=== PATIENT | female | born 1965 | race Caucasian/White ===

== ENCOUNTER 2019-10-05 10:15 | Outpatient (CLI) | payer MEDICAID ==
[~2019-10-05] VITALS: Ht 162 cm; Wt 70.4 kg
[2019-10-05] MEDS ORDERED: PRED5TAB PO (10:41)
[2019-10-05] MEDS ORDERED: OMEP20CA13 PO (10:41)
[2019-10-05] MEDS ORDERED: DESV50TA PO (10:41)
[2019-10-05] MEDS ORDERED: TRAM50TA2 PO (10:41)
[2019-10-05] MEDS ORDERED: TOPI200T8 PO (10:41)
[2019-10-05] MEDS ORDERED: BACL20TA PO (10:41)
[2019-10-05] MEDS ORDERED: TRAZ-190 PO (10:41)
[2019-10-05] MEDS ORDERED: DICY10CA12 PO (10:41)
[2019-10-05] MEDS ORDERED: CARI4.5C PO (10:41)
[2019-10-05] MEDS ORDERED: QUET50TA PO (10:41)
[2019-10-05] MEDS ORDERED: VARE0.5T PO (10:41)
[2019-10-05] MEDS ORDERED: RIZA10TA23 PO (10:41)
[2019-10-05] MEDS ORDERED: EREN70AU SQ (10:41)
[2019-10-05] MEDS ORDERED: INDO25CA15 PO (10:41)
== END 2019-10-05 10:56 ==
LOC: PREOP 10:15
PROVIDERS: ATTEND Orthopaedic Surgery
DX: Z01.818 Encounter for other preprocedural examination (principal)

== ENCOUNTER 2019-10-10 09:06 | Day surgery (SDC) | payer MEDICAID ==
[~2019-10-10] VITALS: Ht 162 cm; Wt 70.4 kg
[2019-10-10] VITALS (14 sets, daily range): BP systolic 88–124; BP diastolic 46–72
[~2019-10-10 09:06] MED LIST: BACL20TA PO; CARI4.5C PO; DESV50TA PO; DICY10CA12 PO; EREN70AU SQ; INDO25CA15 PO; OMEP20CA13 PO; PRED5TAB PO; QUET50TA PO; RIZA10TA23 PO; TOPI200T8 PO; TRAM50TA2 PO; TRAZ-190 PO; VARE0.5T PO
[2019-10-10] MEDS ORDERED: CLINDAMYCIN 600 MG/50 ML IVPB 50 ML IV ONE (09:15)
[2019-10-10] MEDS ORDERED: BACITRACIN 100,000 UNIT/NS 1000 ML POUR BOTTLE IR ONE ×2 (09:30)
[2019-10-10] MEDS: LACTATED RINGERS 1,000 ML IV PRN ×2 (09:34→11:22)
[2019-10-10] MEDS ORDERED: VANCOMYCIN 1000 MG/VIAL ONE (10:13)
[2019-10-10] MEDS ORDERED: BUP/EPI 0.5% 1:200,000 (SENSORCAINE) 30 ML VIAL ONE (10:13)
[2019-10-10] MEDS ORDERED: MIDAZOLAM 2 MG/2 ML (VERSED) VIAL ONE (10:17)
[2019-10-10] MEDS ORDERED: fentaNYL INJECTION 100 MCG/2 ML AMP ONE (10:17)
[2019-10-10] MEDS ORDERED: ROCURONIUM 10 MG/ML 5 ML SYRINGE IV ONE (10:23)
[2019-10-10] MEDS ORDERED: proPOfol 200 MG/20 ML (DIPRIVAN) VIAL IV ONE (10:23)
[2019-10-10] MEDS ORDERED: SEVOFLURANE (ULTANE) 15 ML INHAL SOLN ONE ×2 (10:23→11:50)
[2019-10-10] MEDS ORDERED: DEXAMETHASONE 10 MG/ML (DECADRON) 1 ML VIAL ONE (10:23)
[2019-10-10] MEDS ORDERED: LIDOCAINE PF 2% 5 ML (XYLOCAINE) VIAL ONE (10:23)
[2019-10-10] MEDS ORDERED: ONDANSETRON 4 MG/2 ML (SDV) Z0FRAN ONE (10:23)
[2019-10-10] MEDS ORDERED: PROPOFOL INJECTION 50 ML IV ONE (10:23)
[2019-10-10] MEDS ORDERED: SUCCINYLCHOLINE INJ 100 MG/5 ML SYR ONE (11:21)
--- NOTE | 2019-10-10 11:44 | Discharge Instructions ---
Discharge Instructions Reconcile Patient Problems Problems Reviewed?: Yes Discharge Medications New, Converted or Re-Newed RX: RX on Chart Patient Instructions Patient Instructions keep incision clean and dry dont get wet, sponge bathe only until follow up dont bend lift twist push or pull 5lb weight restriction Goal/Follow Up Appt: follow up in clinic in 2 weeks [facility] to [facility] For: chest pain shortness of breath lower extrimity weakness, numbness tingling, bowel or bladder dysfunction Activity & Diet Discharge Diet: No Restrictions NEYDA NELSON Oct 10, 2019 11:44 POS
[2019-10-10] MEDS ORDERED: HYDR-4227 PO (11:45)
[2019-10-10] MEDS ORDERED: HYDROmorphone 2 MG/ML VIAL (DILAUDID) IV ONE (12:00)
[2019-10-10] MEDS ORDERED: fentaNYL INJECTION 100 MCG/2 ML AMP IVP ONE (12:00)
[2019-10-10] MEDS ORDERED: ONDANSETRON 4 MG/2 ML (SDV) Z0FRAN IVP PRN (12:00)
[2019-10-10] MEDS ORDERED: HYDROmorphone 2 MG/ML VIAL (DILAUDID) ONE (12:02)
--- NOTE | 2019-10-10 12:20 | Diagnostic Imaging Report ---
INDICATION: Laminectomy. COMPARISON: None Total fluoroscopy time: 8.6 seconds Total number of fluoroscopic images saved: 1 FINDINGS: Single lateral intraoperative image intensifier views lumbar spine was obtained. Radiopaque markers are noted projecting over the posterior elements of L3 and S1. Please note, interpreting radiologist was not present during the procedure. IMPRESSION: 1. Fluoroscopic guidance provided during lumbar surgery. Dictated by: Dictated on workstation # [id number]
[2019-10-10] MEDS ORDERED: ACETAMINOPHEN 325 MG TABLET PO PRN (15:00)
[2019-10-10] MEDS ORDERED: ONDANSETRON 4 MG/2 ML (SDV) Z0FRAN IV PRN (15:00)
--- NOTE | 2019-10-10 15:02 | Anesthesia-General Post-Op ---
General Patient Condition Mental Status/LOC: Same as Preop Cardiovascular: Satisfactory Nausea/Vomiting: Absent Respiratory: Satisfactory Pain: Controlled Complications: Absent Post Op Complications Complications None Follow Up Care/Instructions Patient Instructions None needed. Anesthesia/Patient Condition Patient Condition Patient was seen after the procedure and she was doing well, no complaints, stable vital signs, no apparent adverse anesthesia problems. VIVIANA LUKE DO Oct 10, 2019 15:02 POS
--- NOTE | 2019-10-10 15:20 | NUR ---
BEDSIDE REPORT GIVEN TO STEPHAN HENSON.
[2019-10-10] MEDS ORDERED: FLU QUADRIvalent (5+ YOA) 2019-2020 (AFLURIA) 0.5 ML IM ONE (16:00)
[2019-10-10] MEDS: fentaNYL INJECTION 100 MCG/2 ML AMP IVP PRN (17:20)
--- NOTE | 2019-10-10 18:48 | OPERATIVE REPORT ---
DATE OF SERVICE: 10/10/2019 SURGEON: Ernesto Stewart DO ANTIQUE AUTO MUSEUM MAINTENANCE WORKER: NIDHI Carmen. This is a medically necessary procedure. Oil Operator was necessary for retraction of vital neurovascular structures. Without an lpn medical assistant, the procedure would not be possible. PREOPERATIVE DIAGNOSES: 1. Lumbar spinal stenosis (lateral recess, foraminal, connective tissue). 2. Lumbar radiculopathy. 3. Neurogenic claudication. POSTOPERATIVE DIAGNOSES: 1. Lumbar spinal stenosis (lateral recess, foraminal, connective tissue). 2. Lumbar radiculopathy. 3. Neurogenic claudication. PROCEDURE PERFORMED: Bilateral laminectomy with hemifacetectomies and foraminotomies. COMPLICATIONS: None. SPECIMEN SENT: None. DRAINS PLACED: Hemovac. ESTIMATED BLOOD LOSS: Minimal. HISTORY OF PRESENT ILLNESS: The patient is a very pleasant 54-year-old female with a history of severe radiating bilateral lower extremity pain. MRI did demonstrate spinal stenosis, which was moderate at two levels, which were L3-L4 and L4-L5. She did wish to proceed with operative intervention after failing all other conservative measures. OPERATION: The patient was identified by name on wrist band in the preoperative holding area. Her operative site was signed, consent was signed. SCDs were placed. Neuro monitoring was hooked up and antibiotics were started. She was taken to the operating room theater and placed under general endotracheal tube anesthesia and then transferred to the operating room table in the prone position. She was prepped and draped in the usual sterile fashion. A formal timeout was conducted. A midline incision was then made and I proceeded with bilateral subperiosteal paraspinal muscular approach exposing the posterior elements and used a Leksell rongeur followed by high speed bur and Kerrison rongeurs to perform a bilateral laminectomy with hemifacetectomies and foraminotomies. I took caution to protect the integrity of the pars intraarticularis and the facet joints. When I was finished, there was no further neurologic compression. At this point, I opted to place a subfascial Hemovac drain and I closed the wound utilizing 0 Vicryls followed by 2-0 Vicryls followed by running 3-0 subcuticular stitch. Please note that I did irrigate the wound thoroughly prior to closure. I applied dressings and took the patient in the supine position to the PACU where she awoke without incident. She tolerated the procedure well. PLAN: At this time is to discharge the patient today. I do want to keep the drain in a couple of hours and then pulled prior to discharge and will see her back in 2 weeks. She knows to avoid any bending, twisting, pushing, pulling. Keep her wound clean and dry. Job ID: [id number] DocumentID: [id number] Dictated Date: 10/10/2019 13:27:06 Engineer Conductor Date: 10/10/2019 18:47:39 Dictated By: ERNESTO STEWART,
[2019-10-10] MEDS: diphenhydrAMINE 25 MG TAB (BENADRYL) PO PRN (20:20)
[2019-10-10] MEDS: oxyCODONE/APAP 5/325MG (PERCOCET 5) TABLET PO PRN (20:21)
[2019-10-11 00:12] VITALS: BP 129/84
[2019-10-11] MEDS: oxyCODONE/APAP 5/325MG (PERCOCET 5) TABLET PO PRN ×2 (00:25→10:51)
[2019-10-11 04:00] VITALS: BP 114/72
[2019-10-11] MEDS: fentaNYL INJECTION 100 MCG/2 ML AMP IVP PRN ×3 (04:33→13:24)
[2019-10-11] MEDS ORDERED: MULTIVIT W/MINERALS TAB (THERAGRAN M) PO SCH (07:00)
[2019-10-11] MEDS: BACLOFEN 10 MG (LIORESAL) TAB PO SCH ×2 (10:47→14:23)
[2019-10-11] MEDS: diphenhydrAMINE 25 MG TAB (BENADRYL) PO PRN ×2 (10:51→10:52)
--- NOTE | 2019-10-11 11:07 | NUR ---
PER DR. SUH, DISCONTINUE DRAIN. PATIENT CAN DC WHEN PAIN IS UNDER CONTROL
--- NOTE | 2019-10-11 11:29 | NUR ---
DISCHARGE PLANNING: Patient has orders for probable discharge home today. She is need of transport through her [place] medicaid [employer] insurance plan. Transport called at phone number [phone] opt 2, opt 1 et set up for 6 p.m. Her transport trip number is #[phone] if needed for reference. I spoke initially with Marli who help to set this up. If patient does not discharge transportation will need to be cancelled. Please call the phone number above follow those options et then give them her transport trip number listed above to cancel. Also noted that she did not have a physical therapy consult. The patient is very nervous et reports pain. This nurse called Dr. Hess office to see if we can order PT to evaluate so that the patient can see that she will be successful for discharge. Awaiting return phone call from his office. Updated the primary care nurse Sharifa of the above information. Addendum: 10/11/19 at 1429 by GIDEON DUFF RN Spoke with patient about discharging before 6p.m. d/t need of bed et dismissal. She is in agreement with that. Contacted [facility] transport at this time to see if they can pickling grader the patient any sooner than 6p.m. Spoke with retail field representative Ramiro et he indicates that a rivet driver can be here in approximately an hour. Notified primary care nurse Sharifa of above information to allow patient to get ready for discharge.
[2019-10-11 13:41] VITALS: BP 114/72
[2019-10-11] MEDS ORDERED: FLU QUADRIvalent (5+ YOA) 2019-2020 (AFLURIA) 0.5 ML IM ONE (14:11)
== END 2019-10-11 14:59 | disposition home or self-care (01) ==
LOC: SDC 09:06 → 4TH 13:15 → SDC 10-11 14:59
PROVIDERS: ATTEND Orthopaedic Surgery
DX: M48.062 Spinal stenosis, lumbar region with neurogenic claudication (principal); M54.16 Radiculopathy, lumbar region; F17.210 Nicotine dependence, cigarettes, uncomplicated; F32.9 Major depressive disorder, single episode, unspecified; F41.9 Anxiety disorder, unspecified; G43.909 Migraine, unspecified, not intractable, without status migrainosus; K21.9 Gastro-esophageal reflux disease without esophagitis; Z91.040 Latex allergy status; Z88.0 Allergy status to penicillin; Z88.5 Allergy status to narcotic agent; Z79.899 Other long term (current) drug therapy; Z79.52 Long term (current) use of systemic steroids; Z90.49 Acquired absence of other specified parts of digestive tract; Z80.0 Family history of malignant neoplasm of digestive organs; Z82.49 Family history of ischemic heart disease and other diseases of the circulatory system
CPT/HCPCS: 87081; 94664